=== PATIENT | female | born 2000 | race Two or more races ===

== ENCOUNTER 2025-01-25 04:44 | Inpatient (IN) | payer MEDICAID, SELFPAY ==
[2025-01-25] VITALS (141 sets, daily range): BP systolic 104–154; BP diastolic 61–96; PULSE 58–108; RESP 18; TEMP 36.8–37.2; O2SAT 88–100; BMI 35.4
[2025-01-25] MEDS: RINGERS LACTATED 1000 ML 1,000 ML 100 ML IV ×2 (06:00→18:18)
--- NOTE | 2025-01-25 06:00 | XR_ITS ---
Examination: age Limited Technique: Limited transabdominal sonographic images pelvis Exam date and time: 2024 hrs. Indications: Schedule for , unknown presentation Findings: Viable intrauterine gestation cephalic presentation spine anterior Cardiac motion 135 BPM Cervix 2.9 cm Impression: Viable intrauterine gestation cephalic presentation
--- NOTE | 2025-01-25 06:10 | PRELIM_ITS ---
Obstetric ultrasound. January 25, 2025 at 0520 hours Clinical history: Confirm presentation. Comparison: No prior study is available for comparison. Findings and Impression: Limited study. There is a gravid uterus with a live fetus in cephalic, spine anterior presentation. cardiac activity is present at a heart rate of 135 beats per minute. The cervix measures 2.9 cm. Report Electronically Signed By: Luis Antonio Quinones 01/25/2025 6:10:07 AM [EST]
[2025-01-25 06:23] LABS: Basophils % (Auto) 0 % (0-2.5); Eosinophils # (Auto) 0.1 Thou/mm3 (0.0-0.5); Eosinophils % (Auto) 1 % (0-10); Hematocrit 37.5 % (36.0-46.0); Hemoglobin 12.8 g/dL (12.0-16.0); Immature Granulocytes % (Auto) 1 % (0-0); Immature Granulocytes Auto 0.04 Thou/mm3 (0.00-0.00); Lymphocytes # (Auto) 1.7 Thou/mm3 (1.0-4.8); Lymphocytes % (Auto) 29 % (10-50); Mean Corpuscular HGB Conc 34.1 g/dl (31.0-37.0); Mean Corpuscular Hemoglobin 31.1 pg (25.0-35.0); Mean Corpuscular Volume 91 fL (80-100); Monocytes # (Auto) 0.3 Thou/mm3 (0.0-0.8); Monocytes % (Auto) 6 % (0-12); Neutrophils # (Auto) 3.7 Thou/mm3 (1.8-7.7); Neutrophils % (Auto) 63 % (37-80); Nucleated Red Blood Cell % 0 /100 WBC (0); Platelet Count 229 Thou/mm3 (140-440); RDW Standard Deviation 47.2 fL (36.4-46.3); Red Blood Count 4.11 Miln/mm3 (4.00-5.20); White Blood Count 5.8 Thou/mm3 (3.6-11.0)
[2025-01-25 07:01] LABS: Syphilis Nonreactive (Nonreactive)
--- NOTE | 2025-01-25 08:19 | ESHP_ITS ---
Documentation for date of: 01/25/25 OB Labor/Induct. HPI History of Present Illness Chief complaint: scheduled for breech but now vertex with intention for IOL : 2 Para: 1 Term pregnancies: 1 pregnancies: 0 Living children: 1 History of Abortions: Spontaneous and Elective: 0 History of Vaginal deliveries: 1 History of sections: No History of : No Date of last menstrual period: 03/22/24 CLARENCE: 01/29/25 Gestational Age (weeks): 39 Gestational Age (days): 3 Gestational age based on last menstrual period: 43 History of present illness: Patient presented for scheduled section for breech presentation determined in office, on ultrasound this morning presentation is now vertex. Dr. Puckett and patient agreed best plan is to proceed with elective IOL. Patient has hx of IOL at 41wk with last delivery and baby had NICU stay for meconium- she wished to avoid going post-dates to avoid this happening again, which is very reasonable. No painful ctx. No LOF. No vaginal bleeding. Normal movement. History of Present Dating criteria: based on 1st trimester US only Adequate Care: Yes Ultrasounds: normal 1st trimester US and normal mid trimester US Narrative: Obesity, starting BMI 30 Anemia, taking iron Labs Maternal Blood Type: A Pos Labs: Positive: Rubella Titre and Negative: RPR, Hepatitis B, HIV, Chlamydia, Gonorrhea and Group Beta Strep Review of Systems Review of Systems Narrative Review of Systems: Review of Systems Systems Reviewed: All systems reviewed, normal except as documented Constitutional Constitutional: Denies body ache(s), Denies chills, Denies fever(s) and Denies headache(s) ENT Ears, Nose, Mouth, and Throat: Denies headache(s) and Denies vertigo Cardiovascular Cardiovascular: Denies chest pain, Denies palpitations, Denies dyspnea and Denies syncope Respiratory Respiratory: Denies cough, Denies dyspnea Gastrointestinal Gastrointestinal: Denies nausea and Denies vomiting Neurologic Neurologic: Denies convulsions, Denies headache(s), Denies other visual disturbances, Denies syncope and Denies vertigo Past Medical History Family History OTHER FAMILY HX: maternal aunt- dwarfism Surgical History SURGICAL: Negative Section OTHER SURGICAL HX: tonsillectomy 2013 Social History SOCIAL: No tobacco, ETOH or illicit drug use. Negative UDS at start of . Past Medical History Comments PMH COMMENT: Obesity, starting BMI 30 Mild intermittent asthma Meds Home Medications and Allergies Home Medications ?Medication ?Instructions ?Recorded ?Confirmed ?Type albuterol sulfate 90 mcg/actuation 1 puff inhalation Q 4H PRN 01/25/25 01/25/25 History aerosol inhaler shortness of breath or wheez ing ferrous sulfate 325 mg (65 mg 325 mg PO BID anemia 10/1101/25/25 History iron) tablet Allergies Allergy/AdvReac Type Severity Reaction Status Date / Time No Known Allergies Allergy Verified 01/25/25 05:14 OB Exam Physical Exam Vital signs: Temp Pulse Resp BP Pulse Ox 98.3 F 71 18 112/70 98 01/25/25 07:05 01/25/25 08:13 01/25/25 07:05 01/25/25 08:13 01/25/25 08:19 Narrative: General: well developed, well nourished, no acute distress, conversant Cardiac: normal heart rate Lungs: breathing without distress Abdomen: soft, gravid, non-tender, no rebound or guarding Extremities: no edema BLE Detailed Labor and Delivery Exam Dilation (cm): ft Effacement (%): 0 Cervix position: posterior station: -3 Consistency: medium Presentation: Vertex (by ultrasound) Membranes: intact Baseline heart rate: 130 monitor accelerations: 15x15 monitor decelerations: None senior living variability: Moderate (11-25) Contraction frequency (min): irregular OB Results Labs 01/25/25 06:05 Labs: Short CBC 01/25/25 Range/Units 06:05 WBC 5.8 (3.6-11.0) Thou/mm3 Hgb 12.8 (12.0-16.0) g/dL Hct 37.5 (36.0-46.0) % Plt Count 229 (140-440) Thou/mm3 Impressions Impression: Examination: age Limited Technique: Limited transabdominal sonographic images pelvis Exam date and time: 2024 hrs. Indications: Schedule for , unknown presentation Findings: Viable intrauterine gestation cephalic presentation spine anterior Cardiac motion 135 BPM Cervix 2.9 cm Impression: Viable intrauterine gestation cephalic presentation OB Assessment & Plan Assessment and Plan (1) Encounter for induction of labor: Status: Acute Assessment and plan: Rachel is a 24yo with SIUP at 39&3wk presenting for scheduled for breech presentation but now vertex and desires elective IOL. SCE: ft/thick/high. Vitals wnl, benign exam. Reassuring assessment overall. EFW 7lb by Shanita. care: Good care with [facility]. Records on chart all reviewed. PMhx/PNC significant for: Obesity, starting BMI 30. Normal 2hr glucose test, normal starting HgbA1c Anemia, taking iron Mild intermittent asthma Plan: -Admit to L&D -Establish IV, routine labs -CEFM -Regular diet [id number], then clear liquid diet in labor -Armed [employer]/consent re: iol and -GBS status: negative -Will initiate IOL with: cytotec 25mcg PV Q4hr -Anticipate -Safe to proceed Rosario Guerrero MD (2) Obesity affecting : Status: Acute (3) Anemia affecting : Status: Acute (2) Obesity affecting Qualifiers: Obesity type affecting : unspecified obesity Trimester: third trimester Qualified Code(s): O99.213 - Obesity complicating , third trimester (3) Anemia affecting Qualifiers: Trimester: third trimester Qualified Code(s): O99.013 - Anemia complicating , third trimester
[2025-01-25] MEDS: MISOPROSTOL 50 mCg TABLET 25 MCG VAGINAL (08:52)
--- NOTE | 2025-01-25 17:36 | PD.LDPN ---
Documentation for date of: 01/25/25 OB Labor Progress Note Pelvic Exam Dilation (cm): 2 Effacement (%): 50 station: -2 Contractions Contraction frequency: q3-4min Assessment and Plan Comments: Patient doing well, just had dinner. Feels her ctx but not too strong. She had the 1 dose of vaginal cytotec earlier and then was leonard too frequently to receive any more doses. She has been up walking and recent repeat SCE by RN showed now /-2, so I presented to room to place toledo balloon. Vitals wnl, afebrile Cat I FHRT Ctx q3-4min SCE: /-2, cook toledo balloon placed with 40cc NS in uterine balloon only, well tolerated Will await toledo balloon falling out If ctx pattern allows, will repeat cytotec Will continue to closely observe CEFM Safe to proceed Rosario Guerrero MD
[2025-01-25] MEDS: fentaNYL CIT INJ 50 mCg/ML AMP 2ML 100 MCG IV (17:42)
[2025-01-25] MEDS: ONDANSETRON INJ 2 MG/ML INJ 2 ML 4 MG IV (19:37)
[2025-01-25 20:55] LABS: Fibrinogen 386 mg/dL (175-375)
[2025-01-25 21:01] LABS: Creatinine,Random Urine 73 mg/dL (30-125); Protein Total, Random Urine 13 mg/dL (1-14)
[2025-01-25 21:02] LABS: Alanine Aminotransferase 92 U/L (10-49); Albumin, Serum 3.2 gm/dL (3.5-5.0); Albumin/Globulin Ratio 1.2 (1.2-2.2); Alkaline Phosphatase 168 U/L (46-116); Anion Gap 9 (7-16); Aspartate Amino Transferase 46 U/L (0-34); BUN/Creatinine Ratio 9 Ratio (12-20); Bilirubin,Total 0.4 mg/dL (0.3-1.2); Blood Urea Nitrogen 6 mg/dL (9-23); Calcium 8.9 mg/dL (8.3-10.6); Calcium (Corrected) 9.5 mg/dL (8.5-10.1); Carbon Dioxide 22.1 mMol/L (20.0-31.0); Chloride 109 mMol/L (98-107); Creatinine (Component) 0.7 mg/dL (0.6-1.3); Estimated Creatinine Clearance 100.5 mL/min (>60); Globulin 2.6 gm/dL (2.3-3.5); Glucose 98 mg/dL (74-106); Osmolality,Calculated 277 (275-295); Sodium 140 mMol/L (136-145); Total Protein 5.8 gm/dL (5.7-8.2); eGFR > 60 See Note
[2025-01-25 22:43] LABS: Uric Acid 6.9 mg/dL (3.1-7.8)
[2025-01-26] VITALS (210 sets, daily range): BP systolic 94–176; BP diastolic 56–105; PULSE 61–106; RESP 12–18; TEMP 36.3–37.1; O2SAT 77–100
[2025-01-26] MEDS: OXYTOCIN in NS 30 units 30 UNIT/500 ML BAG IV ×2 (03:49→15:53)
[2025-01-26] MEDS: RINGERS LACTATED 1000 ML 1,000 ML 100 ML IV ×4 (06:57→14:46)
--- NOTE | 2025-01-26 10:23 | PD.LDPN ---
Documentation for date of: 01/26/25 OB Labor Progress Note Pelvic Exam Dilation (cm): 5 Effacement (%): 50 station: -2 Contractions Contraction frequency: q3-4min Assessment and Plan Comments: Patient doing well, comfortable with epidural. Pitocin at 4mu. Vitals wnl, afebrile Cat I-II FHRT, mod donis, +accels, a couple subtle late decels resolved with repositioning SCE: 550/-2, AROM performed with moderate meconium noted Plan to continue to titrate pitocin per protocol Will notify pediatric team of presence of meconium Will continue to closely observe CEFM Safe to proceed Rosario Guerrero MD
[2025-01-26] MEDS: ONDANSETRON INJ 2 MG/ML INJ 2 ML 4 MG IV ×2 (11:14→19:50)
--- NOTE | 2025-01-26 15:16 | PD.LDPN ---
Documentation for date of: 01/26/25 OB Labor Progress Note Pelvic Exam Dilation (cm): 5 Effacement (%): 60 station: -2 Contractions Contraction frequency: q3-4min Assessment and Plan Comments: Pitocin feeling her ctx as more painful, recently received bolus of epidural. Pitocin has been turned on/off twice this morning/afternoon for late decels that immediately resolve when pitocin is turned off. Vitals wnl, afebrile Cat I-II FHRT with mod donis, +accels, occasional late decels that resolve when pitocin is turned off SCE: 5-/-2. IUPC placed without issue. Plan: -Continue repositioning patient to try to gain descent -Once FHRT is reliably Cat I, resume IV pitocin and titrate per protocol -Discussed with patient that if we cannot obtain cervical loom changeover operator time with pitocin on or off, may need to proceed to section -Will continue to closely monitor -CEFM -Safe to proceed Rosario Guerrero MD
--- NOTE | 2025-01-26 16:26 | PD.LDPN ---
Documentation for date of: 01/26/25 OB Labor Progress Note Pelvic Exam Dilation (cm): 5 Effacement (%): 60 station: -2 Contractions Contraction frequency: q3-4min Assessment and Plan Comments: Patient in a lot of pain, requesting section. Epidural was re-bolused fairly recently, but regardless she is feeling a lot of pain with ctx. Technically now meets criteria for arrest of dilation as of 1619 since she hasn't made cervical change coordinator the past 6 hours and have not been able to titrate up pitocin to adequate MVUs given intermittent late FHR decels that resolve once pitocin is turned off. Vitals wnl, afebrile Cat I-II FHRT Inadequate MVUs SCE: -/-2 -Counseled/consented re: section. Discussed all r/b/a to include: bleeding (possible need for blood transfusion), infection (subcutaneous, deeper layers or uterine with possible need for prolonged admission or re-admission for IV antibiotics, I&D with wound packing, etc), injury to nearby structures such as bladder, bowel, ureters, blood vessels, nerves with possible need for re-operation, pain, injury to baby, hysterectomy, DVT/PE, . Answered all questions to patient and their support person's satisfaction. -IV abx ppx: ancef 2g IV x1 and azithromycin 500mg IV x1 -Nursing and anesthesia team aware of plan for section. Will proceed to OR when team is ready Rosario Guerrero MD
[2025-01-26] MEDS: AZITHROMYCIN INJ 500 MG in SODIUM CHLORIDE 0.9% 250 ML 250 ML 250 MG IV (16:46)
[2025-01-26] MEDS: ceFAZolin/D5W 2 GM IV 2 GM/100 ML BAG IV (16:55)
[2025-01-26] MEDS: FAMOTIDINE INJ 10 MG/ML VIAL 2 ML 20 MG IV (16:55)
[2025-01-26] MEDS: METOCLOPRAMIDE INJ 5 MG/ML VIAL 2 ML 10 MG IVP (16:56)
[2025-01-26] MEDS: OXYTOCIN in NS 20 units 20 UNIT/1,000 ML BAG 125 UNIT IV (18:46)
--- NOTE | 2025-01-26 18:54 | PD.LDDELS ---
Data (Conde) Data Hx Section: No : 2 Para: 1 Term: 1 : 0 Livin : 0 Delivery Data (Conde) Labor Data ROM Date: 01/26/25 ROM Time: 10:20 Rupture Type: AROM Amniotic Fluid: Thick Meconium Delivery Data Labor Onset Stage 1 Date: 01/26/25 Labor Onset Stage 1 Time: 10:20 Labor Onset Stage 2 Date: 01/26/25 Labor Onset Stage 2 Time: 17:38 Delivery Date: 01/26/25 Delivery Time: 17:38 Placenta Delivery Date: 01/26/25 Placenta Delivery Time: 17:39 Delivered by: Rosario Guerrero Delivery nurse: Kellen Mansfield Other staff at delivery: Nurse Other staff at delivery: Nurse Other staff at delivery: Other staff at delivery: Debby Giordano Other staff at delivery: Jessica Bey Other staff at delivery: samreen Delivery Method Delivery: Delivery Type: Primary Anesthesia Type Primary Anesthesia: Epidural Secondary Anesthesia: Spinal Placenta Cord Sample: Cord Blood Obtained EBL Estimated blood loss (ml): 1,200 Additional Procedures Primary Low Transverse Section for arrest of dilation, see operative note for details. Data (Conde) Data Gender: Female Infant Weight Grams: 2880 1 Minute Total: 8 5 Minute Total: 9
--- NOTE | 2025-01-26 18:55 | ESOP_ITS ---
Operative Note - SHOE SINGER Procedure Date of procedure: 01/26/25 Procedure Performed: Primary Low Transverse Section Indication: Rachel is a 24yo [id number] who presented to L&D for scheduled section for breech presentation, but upon re-evaluation was found to have cephalic presentation. At that time decision was made to proceed with induction of labor since she was 39w3d with variable lie. She progressed with cytotec, fo lucie cervical balloon, pitocin and AROM to 5-6cm but made no further progress x6 hours. station remained -2. She was having quite a bit of pain despite bolus of epidural and declined any further epidural boluses, requested section which she then met criteria for with arrest of dilation. Pre-Op diagnosis: SIUP at 39w4d IOL for variable lie Arrest of dilation Obesity, starting BMI 30 Post-Op diagnosis: SIUP at 39w4d IOL for variable lie Arrest of dilation Obesity, starting BMI 30 Anesthesia type: Epidural (with sedation) Procedure description: After obtaining informed consent, the patient was taken to the operating room. There was reassuring heart rate tracing prior. Epidural was in place. A toledo catheter was in place. Bilateral sequential compression devices were placed. She was then prepped and draped in the normal sterile fashion in the dorsal supine position with left lateral tilt. A timeout was performed to confirm patient name, date of , procedure and indication. The team was in agreement. Spinal anesthesia was found to be adequate using an Allis clamp. Anceph 2g IV x1 and azithromycin 500mg IV x1 were given for prophylaxis. A Pfannenstiel skin incision was then made with the scalpel and carried through to the underlying layer of fascia. The fascia was incised in the midine and the incision was extended laterally with the Saenz scissors. The superior and inferior aspects of the fascial incision were then grasped with the Krish clamps, elevated and the underlying rectus muscles were dissected off bluntly and sharply. The peritoneum was entered digitally and the rectus muscles were then in the midline. The peritoneal incision was then extended superiorly and inferiorly with good visualization of the bladder. Bladder blade was placed. The vesicouterine peritoneum was then identified, grasped with the pickups, and entered sharply with the Metzenbaum scissors. The incision was extended laterally and the bladder flap created digitally. Bladder blade re-plac ed to push the bladder away. The lower uterine segment was scored in a transverse fashion with the scalpel. The uterus was then entered bluntly and the incision was extended with traction with meconium stained amniotic fluid noted. The infant's head was elevated to the level of the incision. Fundal pressure was applied. The head was delivered atraumatically in the OT position. The anterior shoulder, posterior shoulder and corpus were delivered without difficulty. The nose and mouth were suctioned with bulb suction and cord was clamped x2 and cut. was vigorous. The infant was handed off to the awaiting nursing team. Cord blood obtained for typing. The placenta was then removed with uterine massage and cord traction. The uterus was exteriorized and cleared of all clot and debris. Allis clamps placed along obvious bleeding areas of the hysterotomy and at the apex of the inferior extension. The uterine incision was repaired with 0-vicryl suture in a running locking fashion, starting from the left side and then using another suture starting at the right side, and meeting in the middle with one of the sutures tied off at the center and the other continuing down to repair the inferior extension at the center of the hysterotomy in running, locking fashion until there was full closure. A second layer of 1 monocryl was used to closed the hysterotomy incision in an imbricating fashion. Then figures of 8 using 0 vicryl were used along 2 areas that had continued oozing. The uterine incision was inspected and hemostasis was then noted. In addition to standard IV pitocin, patient received TXA 1g IV x1. Good uterine tone was noted throughout (though uterus grossly enlarged). The posterior cul-de-sac was suctioned and the uterus returned to the abdomen. The gutters were cleared of all clot. A piece of surgicel snow was placed over the repaired hysterotomy which again was noted to be hemostatic. The peritoneum was closed using a 3-0 vicryl suture in running fashion. The rectus muscles were inspected and small areas of oozing were cauterized. The fascia was reapproximated with 0-Vicryl suture in a running fashion. The subcutaneous tissue was then irrigated. Jameson's fascia was reapproximated in 2 layers using 3-0 vicryl suture in a running fashion. At that point BRADY Johnson sutured the skin with 4-0 monocryl in running subcuticular fashion. The incision was cleaned with a wet lap and dried with a dry lap. Mtserhcnh-kqdypixoszj-iuie bandage was applied overlying the incision and activated according to special procedures technologist instructions. Fundus was firm at U+1. Sponge , lap and needle counts were correct x2. During the procedure Rachel had some hypotension treated with IVF bolus, ephedrine and albumin. Will check CBC immediately post-op and transfuse if indicated (starting Hgb 12.8). The patient tolerated the procedure well. She was taken to recover further on Labor and Delivery, in stable condition. Fluids: crystalloid (3000ml) and other (albumin 250ml ) Urine output (mL): 100 Specimen: none (placenta and cord not sent to pathology) Estimated blood loss (ml): 1,200 Findings: Female in cephalic presentation, acynclitic with significant caput. Apgars 8/9, weight 2880g, TOB 1738. Inferior extension (midline) of hysterotomy with associated extra blood loss, carefully repaired. Grossly enlarged uterus (query adenomyosis), normal appearing fallopian tubes and ovaries. Complications: intraoperative hemorrhage (related to inferior extension of hysterotomy) Surgical staff Operation Date: 01/26/25 17:15 Case Staff STAKING TECHNICIAN: Anton Brumfield RN First Assistant: Elizabeth Hernandez Diagnosis Discharge Diagnosis (1) Arrest of dilation, delivered, current hospitalization: Status: Acute (2) Obesity affecting : Status: Acute (3) Encounter for induction of labor: Status: Acute Problem List Completed Was Problem List Reviewed/Reconciled?: Yes (2) Obesity affecting Qualifiers: Trimester: third trimester Obesity type affecting : unspecified obesity Qualified Code(s): O99.213 - Obesity complicating , third trimester
[2025-01-26 20:07] LABS: Basophils % (Auto) 0 % (0-2.5); Eosinophils % (Auto) 0 % (0-10); Hematocrit 27.2 % (36.0-46.0); Hemoglobin 8.9 g/dL (12.0-16.0); Immature Granulocytes % (Auto) 1 % (0-0); Immature Granulocytes Auto 0.11 Thou/mm3 (0.00-0.00); Lymphocytes # (Auto) 0.4 Thou/mm3 (1.0-4.8); Lymphocytes % (Auto) 2 % (10-50); Mean Corpuscular HGB Conc 32.7 g/dl (31.0-37.0); Mean Corpuscular Hemoglobin 31.4 pg (25.0-35.0); Mean Corpuscular Volume 96 fL (80-100); Monocytes # (Auto) 0.7 Thou/mm3 (0.0-0.8); Monocytes % (Auto) 4 % (0-12); Neutrophils # (Auto) 17.7 Thou/mm3 (1.8-7.7); Neutrophils % (Auto) 93 % (37-80); Nucleated Red Blood Cell % 0 /100 WBC (0); Platelet Count 183 Thou/mm3 (140-440); RDW Standard Deviation 49.7 fL (36.4-46.3); Red Blood Count 2.83 Miln/mm3 (4.00-5.20); White Blood Count 18.9 Thou/mm3 (3.6-11.0)
[2025-01-27] MEDS: KETOROLAC INJ 30 MG/ML VIAL IVP ×3 (00:06→14:12)
[2025-01-27 00:10] VITALS: BP 112/74; PULSE 79; RESP 18; TEMP 36.7; O2SAT 96
[2025-01-27] MEDS: OXYTOCIN in NS 20 units 20 UNIT/1,000 ML BAG 125 UNIT IV (02:18)
[2025-01-27 05:35] VITALS: BP 117/78; PULSE 86; RESP 17; TEMP 36.5; O2SAT 97
[2025-01-27 07:19] LABS: Basophils % (Auto) 0 % (0-2.5); Eosinophils % (Auto) 0 % (0-10); Hematocrit 26.4 % (36.0-46.0); Immature Granulocytes % (Auto) 1 % (0-0); Lymphocytes # (Auto) 1.4 Thou/mm3 (1.0-4.8); Lymphocytes % (Auto) 9 % (10-50); Mean Corpuscular HGB Conc 31.8 g/dl (31.0-37.0); Mean Corpuscular Hemoglobin 30.9 pg (25.0-35.0); Mean Corpuscular Volume 97 fL (80-100); Monocytes # (Auto) 0.6 Thou/mm3 (0.0-0.8); Monocytes % (Auto) 4 % (0-12); Neutrophils % (Auto) 86 % (37-80); Nucleated Red Blood Cell % 0 /100 WBC (0); Platelet Count 177 Thou/mm3 (140-440); RDW Standard Deviation 51.6 fL (36.4-46.3); Red Blood Count 2.72 Miln/mm3 (4.00-5.20); White Blood Count 15.1 Thou/mm3 (3.6-11.0)
[2025-01-27 07:29] LABS: Hemoglobin 8.4 g/dL (12.0-16.0)
[2025-01-27 08:00] VITALS: BP 110/77; PULSE 79; RESP 17; TEMP 36.6; O2SAT 98
[2025-01-27] MEDS: DOCUSATE SOD 100 MG CAPSULE PO (09:05)
[2025-01-27] MEDS: FERROUS SULF 325 MG TABLET PO ×2 (09:19→21:14)
--- NOTE | 2025-01-27 10:20 | ESPR_ITS ---
Subjective Subjective Interval history: Patient doing well overall. Pain is controlled. She is ambulating with only slight occasional lightheadedness. Voiding spontaneously since toledo was removed, no issues. Tolerating regular diet without nausea/vomiting. Normal lochia. No fevers/chills, no CP/SOB. Exam Vital Signs Temp Pulse Resp BP Pulse Ox O2 Del Method 97.9 F 79 17 110/77 98 Room Air 01/27/25 08:00 01/27/25 08:00 01/27/25 08:00 01/27/25 08:00 01/27/25 08:00 01/27/25 08:00 Narrative Exam General: well developed, well nourished, no acute distress, conversant Cardiac: normal heart rate Lungs: breathing without distress Abdomen: soft, post-gravid, non-tender, no rebound or guarding, pfannenstiel incision covered by dry/clean/intact prineo bandage. Incision well reapproximated. No erythema, drainage or induration. Fundus firm at u-2cm. Extremities: no pain with palpation of calves, trace edema of BLE Objective Labs 01/27/25 07:00 01/25/25 20:16 Labs: Laboratory Results - last 24 hr 01/26/25 01/27/25 19:14 07:00 WBC 18.9 H D 15.1 H RBC 2.83 L 2.72 L Hgb 8.9 L D 8.4 L Hct 27.2 L D 26.4 L MCV 96 97 MCH 31.4 30.9 MCHC 32.7 31.8 RDW Std Deviation 49.7 H 51.6 H Plt Count 183 D 177 Neut % (Auto) 93 H 86 H Lymph % (Auto) 2 L 9 L Lander % (Auto) 4 4 Eos % (Auto) 0 0 Baso % (Auto) 0 0 Neut # (Auto) 17.7 H 13.0 H Lymph # (Auto) 0.4 L 1.4 Lander # (Auto) 0.7 0.6 Eos # (Auto) 0.0 0.0 Baso # (Auto) 0.0 0.0 Immature Gran # (Auto) 0.11 H 0.10 H Absolute Nucleated RBC 0.00 0.00 Immature Gran % 1 H 1 H Nucleated RBC % 0 0 Assessment & Plan Problem List (1) Arrest of dilation, delivered, current hospitalization: Status: Acute Assessment and plan: Rachel is a 24yo [id number] s/p uncomplicated PLTCS for arrest of dilation while undergoing IOL for variable lie, doing well on POD 1. Vitals wnl, benign exam. Hemodynamically stable with no evidence of infection. Expected change in H/H from 12.8 to 8.9 to 8.4 (EBL 1200ml). complicated by: Obesity, starting BMI 30 Anemia, taking iron Plan: -Continue routine /post-op care -Awaiting due to void, toledo out recently -Regular diet -Toradol 30mg IV Q6hr x4 doses then motrin 800mg PO Q8hr as well as norco 5/325mg PO Q6hr prn breakthrough pain -Encourage ambulation and use of IS (no IS yet given to patient, I requested RN to ensure she is given IS to start using) -Anticipate discharge home tomorrow if meeting all milestones (2) Obesity affecting : Status: Acute (3) Encounter for induction of labor: Status: Acute Time Spent With Patient Time: Total time spent is greater than 50% in coordination of care (as documented) at patient's floor/unit and/or counseling patient:
[2025-01-27 12:00] VITALS: BP 110/76; PULSE 96; PULSE 98; RESP 17; TEMP 37.1
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
[2025-01-27 16:00] VITALS: BP 113/79; PULSE 90; RESP 18; TEMP 36.6; O2SAT 97
[2025-01-27] MEDS: HYDROcodone/APAP 5/325 TABLET 1 TAB PO (21:14)
[2025-01-27 23:55] VITALS: BP 108/73; PULSE 74; RESP 18; TEMP 36.4; O2SAT 96
[2025-01-28] MEDS: IBUPROFEN TAB 400 MG TABLET 800 MG PO (05:08)
[2025-01-28] MEDS: SIMETHICONE 80 MG CHEW PO (05:08)
[2025-01-28] MEDS: Milk Of Magnesia Susp 30 ML UDC PO (05:08)
--- NOTE | 2025-01-28 07:07 | PD.LDDS ---
DS: Providers Provider Date of admission: 01/25/25 04:44 Primary care physician: Demetri Jay MD Admitting Provider: Rosario Guerrero MD Attending Provider on Admission: Rosario Guerrero MD Consults: 01/26/25 18:49 Referral Routine Comment: Attending Provider on DC: Rosario Guerrero MD Discharging Provider: Rosario Guerrero MD DS: Diagnosis Discharge Diagnosis (1) Arrest of dilation, delivered, current hospitalization: Status: Acute (2) Anemia affecting : Status: Acute (3) Obesity affecting : Status: Acute (4) Encounter for induction of labor: Status: Acute Problem List Completed Was Problem List Reviewed/Reconciled?: Yes Summary/Hosp Course Brief History: Patient presented for scheduled section for breech presentation determined in office, on ultrasound this morning presentation is now vertex. Dr. Puckett and patient agreed best plan is to proceed with elective IOL. Patient has hx of IOL at 41wk with last delivery and baby had NICU stay for meconium- she wished to avoid going post-dates to avoid this happening again, which is very reasonable. No painful ctx. No LOF. No vaginal bleeding. Normal movement. She is now POD 2 s/p PLTCS complicated by ebl 1200ml related to inferior hysterotomy extension. She has had an uncomplicated post-operative course, meeting all milestones and feels ready for discharge home. She is ambulating without lightheadedness, tolerating regular diet no n/v, spontaneously voiding without issue. She has no chest pain or shortness of breath. No fevers or chills. Pain well controlled. Vitals normal, benign exam. Hemodynamically stable with no evidence of infection. Expected change in H/H from 12.8 to 8.9 to 8.4 (EBL 1200ml). No sx of anemia. Peripartum Data Procedures: Procedures Operation Date: 01/25/25 07:45 <No data on this case meets the specified criteria> Operation Date: 01/26/25 17:15 Actual Procedure Side Surgeon p in OB Not Applicable Rosario Guerrero MD Status at Discharge Functional status at discharge: independent ambulation Overall status at discharge: patient is back to baseline Time Spent with Patient Time attestation: Total time spent providing and/or coordinating discharge services: Exam Vital Signs Temp Pulse Resp BP Pulse Ox O2 Del Method 97.6 F 74 18 108/73 96 Room Air 01/27/25 23:55 01/27/25 23:55 01/27/25 23:55 01/27/25 23:55 01/27/25 23:55 01/27/25 23:55 Narrative Exam General: well developed, well nourished, no acute distress, conversant Cardiac: normal heart rate Lungs: breathing without distress Abdomen: soft, post-gravid, non-tender, no rebound or guarding, pfannenstiel incision covered by dry/clean/intact prineo bandage. Incision well reapproximated. No erythema, drainage or induration. Fundus firm at u-2cm. Extremities: no pain with palpation of calves, trace edema of BLE Discharge Plan Plan Patient Disposition: HOME (Self Care) Patient condition on transfer: Stable Prescriptions/Referrals Prescriptions/Med Rec: New hydrocodone-acetaminophen 5-325 mg Tablet 1 tab PO Q6H MDD 4 tablets PRN (Reason: Patient rated pain 7 to 8) 10 Days Qty: 12 0RF ferrous sulfate 325 mg (65 mg iron) Tablet,Delayed Release (Dr/Ec) 325 mg PO DAILY 30 Days Qty: 30 0RF ibuprofen 800 mg tablet 800 mg PO Q8H 10 Days Qty: 30 0RF polyethylene glycol 3350 17 gram powder in packet 17 g PO QDAY Qty: 14 0RF Continued albuterol sulfate 90 mcg/actuation HFA aerosol inhaler 1 puff INHALATION Q4H PRN (Reason: shortness of breath or wheezing) Patient Comments: INHALE 1 PUFF INTO THE LUNGS EVERY 4 HOURS NEEDED FOR 7 DAYS Discontinued ferrous sulfate 325 mg (65 mg iron) tablet 325 mg PO BID Patient Comments: TAKE 1 TABLET BY MOUTH TWICE A DAY Referrals: Demetri Jay MD [Primary Care Provider] - Patient/Caregiver Discharge Instructions Discharge Activity: activity as tolerated and other Other Discharge Activity Instructions:: vaginal rest and no heavy lifting more than 10 pounds for 6 weeks. no [address] while taking narcotic. keep incision clean and dry, do not submerge. Other Discharge Diet Instructions: regular diet Education Materials: C Section Dc Print Language: [place] Activity Restrictions/Additional Instructions: follow up in 1 week for incision check, call clinic to schedule appointment if one is not made prior to discharge Stand Alone Forms: [facility] Info., Patient Portal Info Letter Discharge Order Discharge Orders: Discharge (Routine); Ordered 01/28/25 Ordered By: Rosario Guerrero Planned Discharge Date 01/28/25 (2) Anemia affecting Qualifiers: Trimester: third trimester Qualified Code(s): O99.013 - Anemia complicating , third trimester (3) Obesity affecting Qualifiers: Trimester: third trimester Obesity type affecting : unspecified obesity Qualified Code(s): O99.213 - Obesity complicating , third trimester
[2025-01-28 08:00] VITALS: BP 122/79; PULSE 90; RESP 16; TEMP 36.8; O2SAT 99
[2025-01-28 08:26] VITALS: BP 122/79; PULSE 90; RESP 16; TEMP 36.8; O2SAT 99
[2025-01-28] MEDS: FERROUS SULF 325 MG TABLET PO (09:58)
[2025-01-28] MEDS: DOCUSATE SOD 100 MG CAPSULE PO (09:59)
[2025-01-28] MEDS: ACETAMINOPHEN 325 MG TABLET 650 MG PO (10:07)
== END 2025-01-28 14:27 | disposition home or self-care (01) | DRG 540 ==
LOC: S4SX 01-26 11:20 → S4NX 01-26 17:19
PROVIDERS: Student in an Organized Health Care Education/Training Program; Admitting Provider Obstetrics & Gynecology; PCP Family Medicine; Visit Provider Obstetrics & Gynecology
PROC: 10D00Z1 Extraction of Products of Conception, Low, Open Approach (ICD-10-PCS; CPT 59514; principal; 2025-01-26 17:00)
DX: O99.214 Obesity complicating childbirth (principal); O99.02 Anemia complicating childbirth; O34.593 Maternal care for other abnormalities of gravid uterus, third trimester; N85.2 Hypertrophy of uterus; J45.20 Mild intermittent asthma, uncomplicated; O99.52 Diseases of the respiratory system complicating childbirth; Z3A.39 39 weeks gestation of pregnancy; Z37.0 Single live birth; O62.0 Primary inadequate contractions; O71.81 Laceration of uterus, not elsewhere classified; O67.8 Other intrapartum hemorrhage; O76 Abnormality in fetal heart rate and rhythm complicating labor and delivery; O77.0 Labor and delivery complicated by meconium in amniotic fluid; O99.42 Diseases of the circulatory system complicating childbirth; I95.89 Other hypotension
CPT/HCPCS: 36415; 59409; 76815; 80053; 82570; 84156; 84550; 85025; 85384; 86780; 86850; 86900; 86901; 94762; A4649; J0456; J0689; J1885; J2274; J2371; J2405; J2590; J2765; J2795; J3010; J3490; J7050; J7120; P9045; A9270; J2270